=== PATIENT | male | born 2000 | race American Indian/Alaskan Native ===

== ENCOUNTER 2025-01-01 22:40 | Emergency (ER) | payer MEDICAID, SELFPAY ==
[2025-01-01 22:41] VITALS: BMI 29.5
[2025-01-01 23:34] VITALS: BP 155/86; PULSE 101; RESP 18; TEMP 37.2; O2SAT 97
--- NOTE | 2025-01-01 23:39 | PD.EDRME ---
Rapid Medical Screening Exam RME Arrival date/time: 01/01/25 22:40 24 yo m present to ED for c/o rectal bleeding/clots I have greeted and performed a focused initial assessment of this patient. A comprehensive ED assessment and evaluation of the patient, analysis of all test results, and completion of the medical decision making process will be conducted by additional ED providers. Chief Complaint: Abdominal Pain Time Seen by Provider: 01/01/25 23:35 Vital signs: Vital Signs Temperature 98.9 F 01/01/25 23:34 Pulse Rate 101 H 01/01/25 23:34 Respiratory Rate 18 01/01/25 23:34 Blood Pressure 155/86 H 01/01/25 23:34 Pulse Oximetry (%) 97 01/01/25 23:34 Oxygen Delivery Method Room Air 01/01/25 23:34
[2025-01-02 00:24] LABS: Collection Type, Urine Voided; Squamous Epithelial Cell,Urine 0 /hpf (0-5)
[2025-01-02 00:42] LABS: Basophils % (Auto) 0 % (0-2.5); Eosinophils % (Auto) 0 % (0-10); Hematocrit 43.8 % (41.0-53.0); Immature Granulocytes % (Auto) 0 % (0-0); Immature Granulocytes Auto 0.03 Thou/mm3 (0.00-0.00); Lymphocytes # (Auto) 2.4 Thou/mm3 (1.0-4.8); Lymphocytes % (Auto) 19 % (10-50); Mean Corpuscular HGB Conc 34.2 g/dl (31.0-37.0); Mean Corpuscular Hemoglobin 29.5 pg (25.0-35.0); Mean Corpuscular Volume 86 fL (80-100); Monocytes # (Auto) 1.1 Thou/mm3 (0.0-0.8); Monocytes % (Auto) 8 % (0-12); Neutrophils # (Auto) 9.3 Thou/mm3 (1.8-7.7); Neutrophils % (Auto) 72 % (37-80); Nucleated Red Blood Cell % 0 /100 WBC (0); Platelet Count 328 Thou/mm3 (140-440); RDW Standard Deviation 39.5 fL (35.1-43.9); Red Blood Count 5.09 Miln/mm3 (4.50-5.90); White Blood Count 12.9 Thou/mm3 (3.8-10.6)
[2025-01-02 01:01] LABS: Bilirubin,Urine Negative (Negative); Blood,Urine Negative (Negative); Clarity,Urine Clear (Clear/Hazy); Color,Urine Yellow (Lt Yel-Yel); Glucose, Urine Negative (Negative); Ketones,Urine Negative (Negative); Leukocyte Esterase,Urine Negative (Negative); Nitrite,Urine Negative (Negative); Protein,Urine Trace (Neg - Trace); RBC,Urine < 1 /hpf (0-3); Specific Gravity,Urine 1.031 (1.001-1.035); Urobilinogen,Urine Negative mg/dL (0.0-1.0); WBC,Urine < 1 /hpf (0-5)
[2025-01-02 01:31] LABS: Alanine Aminotransferase 30 U/L (10-49); Albumin, Serum 5.2 gm/dL (3.5-5.0); Albumin/Globulin Ratio 2.2 (1.2-2.2); Alkaline Phosphatase 98 U/L (46-116); Anion Gap 8 (7-16); Aspartate Amino Transferase 19 U/L (0-34); BUN/Creatinine Ratio 12 Ratio (12-20); Bilirubin,Total 0.4 mg/dL (0.3-1.2); Blood Urea Nitrogen 14 mg/dL (9-23); Calcium 9.9 mg/dL (8.3-10.6); Calcium (Corrected) 9.9 mg/dL (8.5-10.1); Carbon Dioxide 26.5 mMol/L (20.0-31.0); Chloride 109 mMol/L (98-107); Creatinine (Component) 1.2 mg/dL (0.6-1.3); Estimated Creatinine Clearance 124.4 mL/min (>60); Globulin 2.4 gm/dL (2.3-3.5); Glucose 83 mg/dL (74-106); Osmolality,Calculated 284 (275-295); Potassium 3.9 mMol/L (3.4-5.1); Sodium 143 mMol/L (136-145); Total Protein 7.6 gm/dL (5.7-8.2); eGFR > 60 See Note
[2025-01-02 01:34] LABS: Partial Thromboplastin Time 28.2 Seconds (22.0-36.0); Prothrombin Time 11.2 Seconds (9.0-12.2)
[2025-01-02 03:24] VITALS: BP 145/81; PULSE 126; RESP 16; TEMP 36.7; O2SAT 96
[2025-01-02 03:50] VITALS: BP 143/103; PULSE 83; RESP 16; TEMP 36.7; O2SAT 96
--- NOTE | 2025-01-02 04:27 | EDNOTE_ITS ---
ED Abdominal Pain RME/HPI General Chief Complaint: Abdominal Pain Stated complaint: BLOOD IN STOOL Time seen by provider: 01/01/25 23:35 Arrival date/time: 01/01/25 22:40 24 year old male present to emergency room with c/o of blood in stool past few days. denies any blood thinner or hx of hemorroids SEVERITY: Symptoms are described as being severe with limitations on activities of daily living CONTEXT: The patient is unable to identify any inciting events. DURATION/TIMING: The symptoms started approximately 2 days ASSOCIATED SYMPTOMS: The patient is unable to identify any other associated symptoms. MODIFYING FACTORS: The patient is unable to identify any alleviating or aggravating symptoms. PERTINENT ROS: no fevers, no cough, no pleuritic pain, no ripping or tearing sensations, denies any lower extremity edema and no unilateral swelling, no chest pain/shortness of breath no nausea,vomiting, diarrhea, no dizziness/headache no rash no loc/syncope episode no abd/back pain no dsyuria,urgency,frequency REVIEW OF SYSTEMS: See History of Present Illness - with the exception of those mentioned in the history of present illness, all other systems reviewed and reported as negative GENERAL: In general the patient is awake, interactive, in an emergency department gurney. HEAD/EYES/EARS/NOSE/THROAT: normo-cephalic, atraumatic, mucus membranes are moist, anicteric, palpebral conjunctiva is pink, trachea is midline. CARDIOVASCULAR: regular rate and regular rhythm, no murmurs, heart sounds are not distant, strong pulses in all four extremities that are equal and symmetric bilateral upper and lower extremities, normal capillary refill. CHEST/PULMONARY: normal chest rise and fall, good air movement, clear to auscultation bilaterally, normal inspiratory to expiratory ratios without evidence of respiratory distress. NECK: No midline/Paraspinal tenderness, no step off ROM/Strenght intact No Kernig and bruzinski sign. No trauma ABDOMEN: soft, not tender, no masses appreciated BACK: normal range of motion without pain. : nurse at bedside. No hemorrhoids ( external), fissure or abscess, active bleeding NEUROLOGICAL: cranio-facial features are symmetric, moves all four extremities equally without obvious limitations or weakness. EXTREMITY: no tenderness to palpation over the long bones or large joints of the bilateral upper and lower extremities, no joint swelling, no joint erythema, no signs of trauma, no unilateral leg swelling and no peripheral edema. SKIN: warm, dry, well-perfused, no jaundice, no rash, no telangiectasias or petechia. PSYCH: calm, cooperative, no evidence of psychosis or agitation RME / HPI RME / HPI narrative: 01/01/25 22:40 24 yo m present to ED for c/o rectal bleeding/clots I have greeted and performed a focused initial assessment of this patient. A comprehensive ED assessment and evaluation of the patient, analysis of all test results, and completion of the medical decision making process will be conducted by additional ED providers. Related Data Previous Rx's ?Medication ?Instructions ?Recorded motrin 600mg 1 tab PO qid/prn pain #12 ta bs 06/16/16 Allergies Allergy/AdvReac Type Severity Reaction Status Date / Time NKA* Allergy Uncoded 01/01/25 22:43 Course Course Course Narrative: This patient has a presentation consistent with rectal bleeding, most likely due to internal hemorrhoid's . Differential diagnosis include. Low suspicion for hemorrhoids (external or internal, including thrombosed hemorrhoids), rectal ulcer (HIV, syphilis, STI) or rectal foreign body. Presentation not consistent with other acute, emergent causes of upper or lower GI bleeding. No evidence of hemorrhagic shock. Plan to check labs to evaluate the extent of bleeding, including H/H. No indication for abdominal imaging at this time. Plan: CBC, CMP, INR/PT/PTT, serial reassessment, PMD? Quality Measures none Orders Category Date Time Status IV [Insert IV] NOW Care 01/02/25 03:30 Active CBC Stat Lab 01/01/25 23:39 Completed CMP [Comprehensive Metabolic Panel] Stat Lab 01/01/25 23:39 Completed PTT [Partial Thromboplastin Time] Stat Lab 01/01/25 23:39 Completed Prothrombin Time with INR Stat Lab 01/01/25 23:39 Completed UA [Urinalysis] Stat Lab 01/01/25 23:43 Completed Vital Signs Vital signs: Vital Signs Temperature 98.9 F 01/01/25 23:34 Pulse Rate 101 H 01/01/25 23:34 Respiratory Rate 18 01/01/25 23:34 Blood Pressure 155/86 H 01/01/25 23:34 Pulse Oximetry (%) 97 01/01/25 23:34 Oxygen Delivery Method Room Air 01/01/25 23:34 Abdominal Pain MDM Patient data External records reviewed:: [facility] previous records Clinical information provided by:: patient Social determinants that could affect healthcare access:: none Patient has the following chronic illnesses:: na How is presenting disease/condition affected by chronic disease/condition?: no chronic disease Evaluation data The following diagnostics were reviewed and interpreted by me:: lab results Lab and/or radiology exams considered but not ordered:: na Interpretation Summary: cbc/cmp wnl pt/ptt/inr wnl Medications / Prescriptions Medications or Prescriptions considered but not ordered:: na Medication administrations:: na Consultations Consultation(s) initiated? (list below): No Diagnosis Differential diagnosis abdominal pain: other (as stated in course ) Most likely diagnosis given after review of the tests above:: rectal bleeding Admission Indicated Admission indicated?: not indicated Admission Request Was there a request for admission?: No Disposition Plan Disposition Plan: Discharge Discharge Attestation Discharge Attestation: The patient and all family members were given an opportunity to ask questions and understood the discharge instructions. Discharge instructions specifically effects, indications for sooner follow up or return to the emergency department, and the expected course of current diagnosis. Patient condition: Stable Discharge Plan Plan Patient Disposition: HOME (Self Care) Prescriptions/Referrals Prescriptions/Med Rec: No Action motrin 600mg 1 tab PO qid/prn pain Qty: 12 0RF Referrals: Artis Mansfield MD [Primary Care Provider] - In 1 week Problem List Clinical Impression: Rectal bleed Patient/Caregiver Discharge Instructions Education Materials: Understanding Rectal Bleeding Print Language: Haitian Stand Alone Forms: [employer] Award Info., Patient Portal Info Letter
[2025-01-02 04:29] VITALS: RESP 18
== END 2025-01-02 04:30 | disposition home or self-care (01) ==
PROVIDERS: Physician Assistant; Emergency Provider Emergency Medicine; PCP Family Medicine
DX: K92.1 Melena (principal)
CPT/HCPCS: 36415; 80053; 81001; 85025; 85610; 85730; 99283